=== PATIENT | female | born 1985 | race Caucasian/White ===

== ENCOUNTER 2021-02-17 17:17 | Emergency (ER) | payer OTHER ==
[2021-02-18 16:15] LABS: SARS-CoV-2 PCR by NAA DETECTED (NotDetected)
== END 2021-02-17 18:50 | disposition home or self-care (01) ==
LOC: CSHERS 17:17
DX: U07.1 COVID-19 (principal); J42 Unspecified chronic bronchitis; J45.909 Unspecified asthma, uncomplicated
CPT/HCPCS: 71045; U0003; U0005

== ENCOUNTER 2021-02-19 05:02 | Emergency (ER) | payer OTHER, SELFPAY ==
[2021-02-19] MEDS ORDERED: Ventolin HFA Inhaler 60 PUFF INHALER ONE (05:48)
== END 2021-02-19 06:05 | disposition home or self-care (01) ==
LOC: CSHERS 05:02
DX: U07.1 COVID-19 (principal); J45.909 Unspecified asthma, uncomplicated; J42 Unspecified chronic bronchitis; F17.210 Nicotine dependence, cigarettes, uncomplicated
CPT/HCPCS: 93005

== ENCOUNTER 2022-03-19 21:41 | Emergency (ER) | payer SELFPAY | END 2022-03-19 23:38 | disposition left against medical advice (07) | LOC: CSHERS 21:41 | DX: Z53.21 Procedure and treatment not carried out due to patient leaving prior to being seen by health care provider (principal) ==